=== PATIENT | male | born 2000 | race Caucasian/White ===

== ENCOUNTER 2025-07-18 02:39 | Inpatient (IN) | payer OTHER ==
[~2025-07-18] VITALS: Ht 172.7 cm; Wt 78.0 kg
[2025-07-18 03:31] LABS: PLATELET COUNT, AUTOMATED 286 10^3/uL (150-450)
[2025-07-18 03:51] LABS: ALT/SGPT 30 U/L (7.0-40); AST/SGOT 23 U/L (<34); CALCIUM LEVEL 9.8 MG/DL (8.5-10.1); CARBON DIOXIDE LEVEL 25 MMOL/L (20-31); CHLORIDE LEVEL 108 MMOL/L (98-107); CREATININE FOR GFR 0.92 MG/DL (0.70-1.30); GLOMERULAR FILTRATION RATE > 90.0 (>60); POTASSIUM SERUM 4.0 MMOL/L (3.5-5.1); SALICYLATE LEVEL < 3.0 MG/DL (<30); SODIUM LEVEL 142 MMOL/L (136-145)
[2025-07-18 03:53] LABS: ETHYL ALCOHOL (ETHANOL) < 0.003 % (0.000-0.010)
[2025-07-18 04:00] LABS: AMPHETAMINES LEVEL URINE NEGATIVE (NEGATIVE); BARBITURATES URINE NEGATIVE (NEGATIVE); BENZODIAZEPINES URINE NEGATIVE (NEGATIVE); CANNABINOIDS URINE NEGATIVE (NEGATIVE); COCAINE METABOLITE URINE NEGATIVE (NEGATIVE); METHADONE URINE NEGATIVE (NEGATIVE); OPIATES URINE NEGATIVE (NEGATIVE); PHENCYCLIDINE URINE NEGATIVE (NEGATIVE)
[2025-07-18] MEDS ORDERED: SERT-141 PO (10:34)
[2025-07-18] MEDS ORDERED: HOME MED LIST COMPLETE! XX SCH (10:35)
[2025-07-18] MEDS ORDERED: IBUPROFEN 400 MG TAB PO PRN (11:10)
[2025-07-18] MEDS ORDERED: MAALOX 30 ML SUSP *UDC PO PRN (11:10)
[2025-07-18] MEDS ORDERED: HALOPERIDOL 5 MG TAB PO PRN (11:10)
[2025-07-18] MEDS ORDERED: OLANZapine 5 MG TAB PO PRN (11:10)
[2025-07-18] MEDS ORDERED: LORazepam 1 MG TAB PO PRN (11:10)
[2025-07-18] MEDS ORDERED: ACETAMINOPHEN 325 MG TAB PO PRN (11:10)
[2025-07-18] MEDS ORDERED: MOM 30 ML SUSPENSION UDC PO PRN (11:10)
[2025-07-18] MEDS: SERTRALINE HCL 50 MG TAB PO SCH (11:56)
[2025-07-18 12:25] VITALS: BP 119/66; TEMP 97
[2025-07-18] MEDS: NICOTINE 14 MG/24 HR TRANSDERMAL TD SCH (13:55)
[2025-07-19 06:20] VITALS: BP 123/68; TEMP 97.1; O2SAT 100
[2025-07-19] MEDS: FLUZONE VACCINE TRIVALENT PF(25-26) 0.5ML SYRINGE IM.IMMUN ONE (09:13)
[2025-07-19 15:17] VITALS: BP 119/64; TEMP 97.7; O2SAT 100
[2025-07-20 06:40] VITALS: BP 143/67; TEMP 97.3; O2SAT 98
[2025-07-20 08:09] VITALS: BP 143/67; TEMP 97.3; O2SAT 98
[2025-07-20 15:26] VITALS: BP 134/73; TEMP 97.8; O2SAT 100
[2025-07-20 15:28] VITALS: BP 124/76; TEMP 98; O2SAT 98
[2025-07-20] MEDS: traZODone 50 MG TAB PO PRN (20:20)
[2025-07-21 06:32] VITALS: BP 106/52; TEMP 97.3; O2SAT 99
[2025-07-21 15:18] VITALS: BP 133/67; TEMP 98; O2SAT 100
[2025-07-22 06:51] VITALS: BP 126/60; TEMP 97.2; O2SAT 99
[2025-07-22] MEDS ORDERED: HYDR-3363 PO (10:52)
[2025-07-22] MEDS ORDERED: TRAZ-252 PO (10:52)
== END 2025-07-22 13:13 | disposition home or self-care (01) | DRG 881 ==
LOC: M ED 02:39 → M ED INP 11:09 → M PSY 12:08
PROVIDERS: ADMIT Internal Medicine; ATTEND Internal Medicine
DX: F32.A Depression, unspecified (principal); R45.851 Suicidal ideations; F60.89 Other specific personality disorders; F90.9 Attention-deficit hyperactivity disorder, unspecified type; F43.10 Post-traumatic stress disorder, unspecified; F43.20 Adjustment disorder, unspecified

== ENCOUNTER → 2025-09-19 | Outpatient (REF) ==
[~2025-09-19] MED LIST: HYDR-3363 PO; SERT-141 PO; TRAZ-252 PO
== END ==
LOC: M PLAIMG 12:03
PROVIDERS: ATTEND Internal Medicine
DX: R07.9 Chest pain, unspecified (principal)